=== PATIENT | female | born 2000 | race Caucasian/White ===

== ENCOUNTER 2020-02-25 13:59 | Emergency (ER) | payer OTHER, SELFPAY ==
[2020-02-25 15:18] VITALS: BP 121/76; PULSE 80; RESP 18; TEMP 37.3; O2SAT 99; BMI 14.6
--- NOTE | 2020-02-25 16:39 | ED.ABDPAIN ---
HPI - Abdominal Pain General Chief Complaint: Abdominal Pain Stated Complaint: ABD PAIN Time Seen by Provider: 02/25/20 16:29 History of Present Illness HPI narrative: patient is a 19-year-old female presents today with having abdominal pain diffuse over the entire abdomen for the last 2 weeks. Patient complaining of generalized malaise weakness. No chest pain or shortness of breath no diaphoresis. Patient claims she is passing gas. She is not actively vomiting. Patient denies anorexia. Claims that she does have a bowel movement but is very minimal. No coughing or congestion or upper respiratory symptoms. No pain on urination. No frequency. Patient has a implant does not think she is . Related Data Patient : No Home Medications Medication Instructions Recorded Confirmed No Known Home Meds 02/25/20 02/25/20 Allergies Allergy/AdvReac Type Severity Reaction Status Date / Time No Known Allergies Allergy Verified 02/25/20 15:17 Review of Systems Review of Systems Constitutional: No Weight loss, No Fever, No Chills, No Night Sweats, No Fatigue, No Malaise ENT/Mouth: No Hearing loss, No Ear Pain, No Nasal Congestion, No Sinus Pain, No Hoarseness, No sore throat, No Rhinorrhea, No Swallowing Difficulty Eyes: No Eye Pain, No Swelling, No Redness, No Foreign Body, No Discharge, No Vision Changes Cardiovascular: No Chest Pain, No SOB, No Dyspnea on Exertion, No Orthopnea, No Edema, No Palpitations Respiratory: No Cough, No Sputum, No Wheezing, No Smoke Exposure, No Dyspnea Gastrointestinal: No Nausea, No Vomiting, No Diarrhea, No Constipation, No abdominal Pain, No Hematochezia, No Melena Genitourinary: no irregular bleeding, No Dysuria, No Urinary Frequency, No Hematuria, No Urinary Incontinence, No Urgency, No Flank Pain, No Urinary Flow Changes, No Hesitancy Musculoskeletal: No joint pain, No Myalgias, No Joint Swelling Skin: No Skin Lesions, No rash Neuro: No Weakness, No Numbness, No Paresthesias, No Loss of Consciousness, No Dizziness, No Headache Psych: No Anxiety/Panic, No Depression, No SI/HI/AH/VH, No Social Issues, Heme/Lymph: No Bruising, No Bleeding,No Lymphadenopathy Endocrine: No Polyuria, No Polydipsia, No Temperature Intolerance Physical Exam Vital Signs: Vital Signs: Vital Signs Temp Pulse Resp BP Pulse Ox 02/25/20 20:00 98.0 F 81 18 100/62 99 02/25/20 19:09 65 14 107/65 98 02/25/20 16:59 77 18 108/69 100 02/25/20 15:18 99.1 F 80 18 121/76 99 Body Mass Index 14.6 Appearance: Alert. Oriented X3. No acute distress. Eyes: Pupils equal, round and reactive to light. ENT: Pharynx normal. Neck: Normal inspection. Neck supple. No lymph nodes noted. No crepitus CVS: Normal heart rate and rhythm. Pulses normal. Normal S1 and S2 Respiratory: No respiratory distress. Breath sounds normal. No Wheezing. No rales Abdomen: Soft and nontender. No rigidity. No distention. good BS x4 Skin: Skin warm and dry. Normal skin color. Normal skin turgor. Extremities: No lower extremity edema. Neurovascular intact to all extremities. No Lacerations. No Rash Neuro: Oriented X 3. No motor deficit. No sensory deficit. Moving all extermities. No slurred speech MDM - Abdominal Pain MDM Narrative Medical decision making narrative: Patient's CT scan of the abdomen did not show any acute evidence of obstruction, abscess, perforation. Patient well-appearing abdominal exam is soft nontender. Will discharge patient home. test was negative. Currently in stable condition. Urine showed no evidence of infection. Differential Diagnosis Differential diagnosis: Likely abdominal pain, calculus of kidney, constipation, gastroenteritis, gastritis, ovarian cyst, pancreatitis and peptic ulcer disease Lab Data Attestation: I reviewed the patient's lab results. Result diagrams: 02/25/20 17:10 02/25/20 17:10 Labs: Lab Results 02/25/20 02/25/20 02/25/20 Range/Units 17:10 17:10 18:49 WBC 6.5 (4.8-10.8) X10*3/uL RBC 4.49 (4.20-5.50) X10*6/uL Hgb 13.3 (12.0-16.0) g/dl Hct 38.8 (37-47) % MCV 86.4 (80-98) fL MCH 29.6 (27.0-33.0) pg MCHC 34.3 (31.0-35.0) g/dl RDW 12.7 (11.0-16.0) % Plt Count 307 (160-400) X10*3/uL MPV 9.4 (9.4-12.3) fL Immature Gran % (Auto) 0.3 (0.0-0.4) % Neut % (Auto) 61.0 (45-73) % Lymph % (Auto) 29.4 (20-40) % [place] % (Auto) 7.7 (2-11) % Eos % (Auto) 0.8 (0-4) % Baso % (Auto) 0.8 (0-2) % Lymph # (Auto) 1.9 (1.2-4.9) X10*3/uL [place] # (Auto) 0.5 (0.1-1.2) X10*3/uL Eos # (Auto) 0.1 (0.0-0.4) X10*3/uL Baso # (Auto) 0.1 (0.0-0.2) X10*3/uL Abs Immat Gran (auto) 0.02 (0.00-0.03) X10*3/uL Absolute Neuts (auto) 4.0 (2.0-8.3) X10*3/uL Absolute Nucleated RBC 0.000 (0.0-0.012) X10*3/uL Nucleated RBC % (auto) 0.0 (0.0-0.2) /100WBC Sodium 139 (135-145) mmol/L Potassium 3.6 (3.3-5.1) mmol/l Chloride 105 (96-108) mmol/L Carbon Dioxide 19 L (22-29) mmol/L Anion Gap 19 (12-20) BUN 8 L (9-16) mg/dL Creatinine 0.80 (0.5-1.4) mg/dL Estim Creat Clear Calc 68.3 Estimated GFR > 60 Random Glucose 78 (60-115) mg/dL Calcium 9.8 (8.4-10.2) mg/dL Total Bilirubin 1.5 H (0.0-1.0) mg/dL Direct Bilirubin 0.6 H (0.0-0.5) mg/dL AST 15 (5-31) U/L ALT 6 (0-31) U/L Alkaline Phosphatase 73 (39-117) U/L Total Protein 7.7 (6.5-8.0) g/dL Albumin 5.0 (3.5-5.0) g/dL Lipase 13 (8-78) U/L Urine Color YELLOW Urine Appearance CLEAR Urine pH 6.0 (5.0-8.0) Ur Specific [place] 1.020 (1.005-1.025) Urine Protein NEG (NEG-TRACE) MG/DL Urine Glucose (UA) NEG (NEG) MG/DL Urine Ketones 40 (NEG) MG/DL Urine Blood NEG (NEG) Urine Nitrite NEG (NEG) Ur Leukocyte Esterase NEG (NEG) Urine Test NEGATIVE (NEGATIVE) Discharge Plan Discharge Clinical Impression: Abdominal pain Patient Disposition: Home, Self-Care Instructions: Abdominal Pain (ED) Prescriptions: No Action No Known Home Meds RF: 0 Referrals: Physician,None [Physician] - 2 days [facility] Past Medical History Medical History (Updated 02/25/20 @ 20:51 by Sabi Calderon MD) Scoliosis Surgical History (Updated 02/25/20 @ 16:42 by Sabi Calderon MD) No pertinent past surgical history Social History Social History Smoking Status: Never smoker Use of substances other than those prescribed or required for medical reasons: Yes Substance Use Type: Marijuana Substance Use Frequency: Daily Advance Directives: No Advance Directives Information Provided: No
[2020-02-25 16:59] VITALS: BP 108/69; PULSE 77; RESP 18; O2SAT 100
[2020-02-25] MEDS: 0.9 % Sodium Chloride 1,000 ML 999 ML IVCONT (17:00)
[2020-02-25 17:15] LABS: MANUAL DIFF FLAG NO
[2020-02-25 17:17] LABS: Basophils Absolute Auto 0.1 X10*3/uL (0.0-0.2); Basophils Percent Auto 0.8 % (0-2); Eosinophils Absolute Auto 0.1 X10*3/uL (0.0-0.4); Eosinophils Percent Auto 0.8 % (0-4); Hematocrit 38.8 % (37-47); Hemoglobin 13.3 g/dl (12.0-16.0); Imm Gran Abs Auto 0.02 X10*3/uL (0.00-0.03); Imm Gran Pct Auto 0.3 % (0.0-0.4); Lymphocytes Absolute Auto 1.9 X10*3/uL (1.2-4.9); Lymphocytes Percent Auto 29.4 % (20-40); Mean Corpuscular HGB Conc 34.3 g/dl (31.0-35.0); Mean Corpuscular Hemoglobin 29.6 pg (27.0-33.0); Mean Corpuscular Volume 86.4 fL (80-98); Mean Platelet Volume 9.4 fL (9.4-12.3); Monocytes Absolute Auto 0.5 X10*3/uL (0.1-1.2); Monocytes Percent Auto 7.7 % (2-11); Platelet Count 307 X10*3/uL (160-400); Red Blood Count 4.49 X10*6/uL (4.20-5.50); Red Cell Distribution Width 12.7 % (11.0-16.0); White Blood Count 6.5 X10*3/uL (4.8-10.8)
[2020-02-25] MEDS: ondansetron HCL 4 MG/2 ML VIAL IVPUSH (17:17)
--- NOTE | 2020-02-25 17:19 | PC.NURSE ---
pt resting in the stretcher, respiration even and unlabored, pt reports mid abd pain x2 weeks and constipation, some nausea as well. pt does reports that she usually has a normal bowel movement every day but not the last two weeks, when she does go just a very small pebble-hard. abd soft and non-tender, hyper active bowel sounds on the left side
[2020-02-25 17:37] LABS: Alanine Aminotransferase 6 U/L (0-31); Alkaline Phosphatase 73 U/L (39-117); Anion Gap 19 (12-20); Aspartate Amino Transferase 15 U/L (5-31); Bilirubin Direct 0.6 mg/dL (0.0-0.5); Bilirubin Total 1.5 mg/dL (0.0-1.0); Blood Urea Nitrogen 8 mg/dL (9-16); Calcium 9.8 mg/dL (8.4-10.2); Carbon Dioxide 19 mmol/L (22-29); Chloride 105 mmol/L (96-108); Creatinine Clr Calc Pharmacy 68.3; Estimated Glomerular Filt Rate > 60; Glucose Random 78 mg/dL (60-115); Lipase 13 U/L (8-78); Potassium 3.6 mmol/l (3.3-5.1); Sodium 139 mmol/L (135-145); Total Protein 7.7 g/dL (6.5-8.0)
--- NOTE | 2020-02-25 18:03 | PC.NURSE ---
PT RESTING, REPORTS THAT NAUSEA HAS IMPROVED BUT STILL HAVING THE ABD PAIN
--- NOTE | 2020-02-25 18:12 | CT_ITS ---
EXAMINATION: CT ABDOMEN AND PELVIS WITH CONTRAST CLINICAL INFORMATION: 19-year-old female patient with abdominal pain. COMPARISON: None TECHNIQUE: Multidetector volumetric images were obtained from the superior aspect of the liver through the pubic symphysis following administration 85 mL of Omnipaque 350 intravenous contrast. Sagittal and coronal reformatted images were obtained on the technologist's workstation. Oral contrast: No This CT examination was performed using dose optimization techniques as appropriate, variously including the following: *Automated exposure control *Adjustment of mA and/or kV according to patient size (this includes techniques or standardized protocols for targeted exams where dose is matched to indication/reason for exam; i.e. extremities or head) *Use of iterative reconstruction technique DLP: 227 mGy-cm FINDINGS: WHEEL ROLLER: No obstruction. There is thoracolumbar scoliosis. LUNG BASES: The visualized lung bases are unremarkable. LIVER, GALLBLADDER, AND BILIARY TREE: The liver is normal in size, shape, and attenuation. No focal hepatic lesion or biliary ductal dilatation is present. The gallbladder is unremarkable with no evidence of radiopaque gallstones, gallbladder wall thickening, or obvious pericholecystic inflammatory changes. PANCREAS: Unremarkable. SPLEEN: Unremarkable. ADRENAL GLANDS: Unremarkable. KIDNEYS AND URETERS: The kidneys are normal in size, shape, and attenuation. No hydronephrosis, hydroureter, or calculi seen. No perinephric stranding. BLADDER: Nearly empty. GASTROINTESTINAL TRACT: The small and large bowel are unremarkable. The appendix is unremarkable. ABDOMINAL WALL: No significant hernia is appreciated. LYMPH NODES: Normal. VASCULAR: Unremarkable. PELVIC VISCERA: The anteverted uterus is normal in shape. A small 0.6 cm enhancing nodule is located in the endometrial canal. Series 6, image 61. This could represent a small submucosal fibroid or endometrial polyp. The adnexa are unremarkable. There is no free fluid. OSSEOUS STRUCTURES: Unremarkable. IMPRESSION: 1. Thoracolumbar scoliosis. 2. Small endometrial polyp or submucosal fibroid.
[2020-02-25 19:00] LABS: Glucose Urine UA NEG (NEG); Leukocyte Esterase Urine NEG (NEG); Nitrite Urine NEG (NEG); Urine Blood NEG (NEG); Urine Ketones 40 MG/DL (NEG); Urine Protein NEG (NEG-TRACE)
[2020-02-25 19:01] LABS: Appearance Urine CLEAR; Color Urine YELLOW
[2020-02-25 19:02] LABS: UPreg QC Valid YES; Urine Pregnancy NEGATIVE (NEGATIVE)
[2020-02-25 19:09] VITALS: BP 107/65; PULSE 65; RESP 14; O2SAT 98
[2020-02-25] MEDS: iohexoL 350 MG/ML 100 ML INFUS..BTL IV (19:24)
[2020-02-25 20:00] VITALS: BP 100/62; PULSE 81; RESP 18; TEMP 36.7; O2SAT 99
[2020-02-25 21:05] VITALS: BP 107/62; PULSE 89; RESP 14; TEMP 36.5; O2SAT 100
== END 2020-02-25 21:14 | disposition home or self-care (01) ==
PROVIDERS: Emergency Provider Emergency Medicine Emergency Medical Services
DX: R10.9 Unspecified abdominal pain (principal); R53.81 Other malaise; F12.90 Cannabis use, unspecified, uncomplicated
CPT/HCPCS: 36415; 74177; 80048; 80076; 81003; 81025; 83690; 85025; 96361; 96374; 99284; J2405

== ENCOUNTER 2020-03-26 16:41 | Emergency (ER) | payer OTHER, SELFPAY ==
--- NOTE | 2020-03-26 | ECG_ITS ---
Test Reason : CHEST PRESSURE Blood Pressure : / mmHG Vent. Rate : 068 BPM Atrial Rate : 068 BPM P-R Int : 104 ms QRS Dur : 084 ms QT Int : 404 ms P-R-T Axes : 060 102 -24 degrees QTc Int : 429 ms Sinus rhythm with short [place] Rightward axis ST depression in Inferior leads RSR' or QR pattern in V1 suggests right ventricular conduction delay T-wave inversion in Anterior leads Abnormal ECG No previous ECGs available Referred By: Generic ED Physician Electronically Signed By:MALU MCLAIN MD
[2020-03-26 17:07] VITALS: BP 110/80; PULSE 74; TEMP 37.5; BMI 14.9
--- NOTE | 2020-03-26 18:57 | ED_ITS ---
HPI - Chest Pain General Chief Complaint: Chest Pain Stated Complaint: burning sensation in chest Time Seen by Provider: 03/26/20 18:44 Source: patient Mode of arrival: ambulatory Limitations: no limitations History of Present Illness HPI narrative: 19-year-old female with no significant past medical history presents with 1 day of chest tightness and burning. She does not describe any palpitations, shortness breath, edema, fevers, chills, abdominal pain, abdominal distention, dysuria, hematuria, or any other concerning symptoms. She did start Prozac 6 days ago. MD complaint: chest pain Onset (ago): day(s) (1) Timing of current episode: constant Prior episodes: No Onset: during rest Pain location: substernal Pain radiation: none Severity: moderate Pain scale (0-10): 6 Quality: tightness and burning Relieving factors: nothing Risk Factors Coronary artery disease risk factors: none Thoracic aortic dissection risk factors: none Related Data On Oral Contraceptives: No Previous Rx's Medication Instructions Recorded omeprazole 20 mg PO DAILY #14 cap 03/26/20 Allergies Allergy/AdvReac Type Severity Reaction Status Date / Time No Known Allergies Allergy Verified 03/26/20 18:44 Review of Systems Review of Systems: Constitutional: No Weight loss, No Fever, No Chills, No Night Sweats, No Fatigue, No Malaise ENT/Mouth: No Hearing loss, No Ear Pain, No Nasal Congestion, No Sinus Pain, No Hoarseness, No sore throat, No Rhinorrhea, No Swallowing Difficulty Eyes: No Eye Pain, No Swelling, No Redness, No Foreign Body, No Discharge, No Vision Changes Cardiovascular: pos Chest Pain and burning, no SOB, no Dyspnea on Exertion, No Orthopnea, No Edema, No Palpitations Respiratory: No Cough, No Sputum, No Wheezing, No Smoke Exposure, No Dyspnea Gastrointestinal: no Nausea, No Vomiting, No Diarrhea, No abdominal Pain, No Hematochezia, No Melena Genitourinary: No irregular bleeding, No Dysuria, No Urinary Frequency, No Hematuria, No Urinary Incontinence, No Urgency, No Flank Pain, No Urinary Flow Changes, No Hesitancy Musculoskeletal: No joint pain, No Myalgias, No Joint Swelling Skin: No Skin Lesions, No rash Neuro: No Weakness, No Numbness, No Paresthesias, No Loss of Consciousness, No Dizziness, No Headache Psych: No Anxiety/Panic, No Depression, No SI/HI/AH/VH Heme/Lymph: No Bruising, No Bleeding,No Lymphadenopathy Endocrine: No Polyuria, No Polydipsia, No Temperature Intolerance Yes all other systems are reviewed and are negative [facility] Past Medical History Attestation statement: The following information was validated with the patient. Medical History Anxiety Social History Social History Alcohol intake: never Smoking Status: Never smoker Use of substances other than those prescribed or required for medical reasons: No Advance Directives: No Advance Directives Information Provided: Yes Physical Exam Vital Signs: Vital Signs: Last Vital Signs Temp 98.5 F 03/26/20 19:20 Pulse 65 03/26/20 19:20 Resp 16 03/26/20 19:20 BP 107/71 03/26/20 19:20 Pulse Ox 99 03/26/20 19:20 Body Mass Index 14.9 Appearance: Alert. Oriented X3. No acute distress. Head: Normal external exam. Normocephalic. Atraumatic. No Koo signs noted. No raccoon eyes noted Eyes: PERRLA. EOMI. Conjunctiva and sclera normal. Eyelids normal. ENT: TM's Normal. Pharynx normal. Uvula midline. Moist mucous membranes. No trismus noted. No drooling noted. No muffled voice noted. Neck: Normal inspection. Neck supple. No adenopathy. Thyroid Normal. No meningeal signs. No neck mass noted. CVS: Normal heart rate and rhythm. Heart sound normal. No murmurs noted. Pulses equal to all extremities. Respiratory: No respiratory distress. Painless inspiration. Breath sounds norm al. No wheezes/rales/rhonchi noted. Chest nontender. No accessory muscle usage noted or decreased air movement noted. Abdomen: Soft and nontender. Bowel sounds normal in all 4 quadrants. No distenti on noted. No organomegaly noted. No visible injury noted. Back: No CVA tenderness. Full range of motion noted. Skin: Skin warm and dry. Normal skin color. Normal skin turgor. No rashes/lesions/lacerations noted. Extremities: No lower extremity edema. Extremities exhibit normal range of motion. Extremities nontender. Neuro: cranial nerves 2-12 intact, no focal neural deficits, strength 5/5 to all extremities, No motor deficit. No sensory deficit. Reflexes normal. Course Course Course Narrative: 19-year-old female with no significant past medical history presents with 1 day of chest tightness and burning. She does not describe any palpitations, shortness breath, edema, fevers, chills, abdominal pain, abdominal distention, dysuria, hematuria, or any other concerning symptoms. She did start Prozac 6 days ago. she recently started Prozac, we will rule out QT prolongation with EKG, rule out ACS with troponin, CBC Chem 7. All lab values are within normal limits. Plan of care is to discharge home and have patient continue to follow-up with gastroenterology as scheduled on April 06 and for primary care evaluation within this week. Patient verbalized understanding of and agrees to plan of care to discharge home. MDM - Chest Pain MDM Narrative Medical decision making narrative: 19-year-old female started Prozac 6 days ago, presents with chest pain and burning. We will rule out ACS, order CBC and Chem 7. we will give Maalox for heartburn. Differential Diagnosis Differential diagnosis: Likely atypical chest pain, st elevation myocardial infarction and chest pain Differential diagnosis: GERD, medication reaction Medical Records Data Attestation: I reviewed the patient's medical records. Lab Data Attestation: I reviewed the patient's lab results. Result diagrams: 03/26/20 19:18 03/26/20 19:18 Labs: Lab Results 03/26/20 03/26/20 03/26/20 Range/Units 19:18 19:18 19:18 WBC 8.6 (4.8-10.8) X10*3/uL RBC 4.41 (4.20-5.50) X10*6/uL Hgb 13.5 (12.0-16.0) g/dl Hct 38.7 (37-47) % MCV 87.8 (80-98) fL MCH 30.6 (27.0-33.0) pg MCHC 34.9 (31.0-35.0) g/dl RDW 13.0 (11.0-16.0) % Plt Count 348 (160-400) X10*3/uL MPV 9.3 L (9.4-12.3) fL Immature Gran % (Auto) 0.4 (0.0-0.4) % Neut % (Auto) 57.1 (45-73) % Lymph % (Auto) 31.7 (20-40) % [place] % (Auto) 9.0 (2-11) % Eos % (Auto) 1.1 (0-4) % Baso % (Auto) 0.7 (0-2) % Lymph # (Auto) 2.7 (1.2-4.9) X10*3/uL [place] # (Auto) 0.8 (0.1-1.2) X10*3/uL Eos # (Auto) 0.1 (0.0-0.4) X10*3/uL Baso # (Auto) 0.1 (0.0-0.2) X10*3/uL Abs Immat Gran (auto) 0.03 (0.00-0.03) X10*3/uL Absolute Neuts (auto) 4.9 (2.0-8.3) X10*3/uL Absolute Nucleated RBC 0.000 (0.0-0.012) X10*3/uL Nucleated RBC % (auto) 0.0 (0.0-0.2) /100WBC Sodium 140 (135-145) mmol/L Potassium 3.8 (3.3-5.1) mmol/l Chloride 105 (96-108) mmol/L Carbon Dioxide 23 (22-29) mmol/L Anion Gap 16 (12-20) BUN 9 (9-16) mg/dL Creatinine 0.71 (0.5-1.4) mg/dL Estim Creat Clear Calc 78.7 Estimated GFR > 60 Random Glucose 85 (60-115) mg/dL Calcium 9.4 (8.4-10.2) mg/dL Magnesium 2.3 (1.6-2.6) mg/dL Troponin I High Sens < 3.5 (<3.5-17.0) ng/L Imaging Data Chest x-ray: Attestation: I personally reviewed and interpreted this imaging study as follows: Radiologist's impression: EXAMINATION: XR CHEST CLINICAL INFORMATION: Chest burning COMPARISON: Scoliosis examination from 07/16/2012 TECHNIQUE: 2 views of the chest were obtained. FINDINGS: Lungs are well-inflated and clear. Trachea is midline in position. No interstitial disease, consolidation or mass. No pleural effusion or pneumothorax. Cardiac silhouette and pulmonary vessels are normal in size. The mediastinum and marlys have normal contour. The visualized upper abdomen is unremarkable. No pneumoperitoneum. There is chronic rotatory dextroscoliosis of the lower thoracic and lumbar spine. XR/XR chest 2V IMPRESSION: No acute cardiopulmonary abnormality. ECG Data ECG #1: Attestation: I personally reviewed and interpreted this ECG as follows: ECG interpretation date: 03/26/20 ECG interpretation time: 17:39 Interpretation: Vent. Rate : 068 BPM Atrial Rate : 068 BPM P-R Int : 104 ms QRS Dur : 084 ms QT Int : 404 ms P-R-T Axes : 060 102 -24 degrees QTc Int : 429 ms Sinus rhythm with short [place] Rightward axis Nonspecific ST and T wave abnormality Abnormal ECG No previous ECGs available Scores Heart Score History: -0- slightly suspicious ECG: -0- normal Age: -0- < or = 45 Risk factory: -0- no risk factors known Troponin: -0- < or = normal limit Score: 0 Risk: 1.7% Discharge Plan Discharge Clinical Impression: Atypical chest pain Patient Disposition: Home, Self-Care Instructions: Chest Pain (ED), Gastroesophageal Reflux Disease (ED) Additional Instructions: you were evaluated for chest pain and burning. Your EKG is normal sinus rhythm, your troponins, which are cardiac enzymes, are negative. Your CBC and chemistry lab values are normal. Urine is negative for UTI and negative for . Please continue to take Prozac as scheduled. You must follow up with the person that prescribed this medication to you in the next week or 2. please follow-up with gastroenterology as scheduled. We have provided you a prescription for omeprazole To manage reflux symptoms. Thank you for choosing this emergency department for evaluation. Please follow-up with primary care physician as needed. Return to the emergency department for any new, concerning, or worsening symptoms. Prescriptions: New omeprazole 20 mg capsule,delayed release(DR/EC) 20 mg PO DAILY Qty: 14 RF: 0
[2020-03-26] MEDS: Magnesium Hydrox/Alum Hydrox 30 ML ORAL.SUSP PO (19:13)
[2020-03-26 19:20] VITALS: BP 107/71; PULSE 65; RESP 16; TEMP 36.9; O2SAT 99
[2020-03-26 19:28] LABS: MANUAL DIFF FLAG NO
[2020-03-26 19:30] LABS: Basophils Absolute Auto 0.1 X10*3/uL (0.0-0.2); Basophils Percent Auto 0.7 % (0-2); Eosinophils Absolute Auto 0.1 X10*3/uL (0.0-0.4); Eosinophils Percent Auto 1.1 % (0-4); Hematocrit 38.7 % (37-47); Hemoglobin 13.5 g/dl (12.0-16.0); Imm Gran Abs Auto 0.03 X10*3/uL (0.00-0.03); Imm Gran Pct Auto 0.4 % (0.0-0.4); Lymphocytes Absolute Auto 2.7 X10*3/uL (1.2-4.9); Lymphocytes Percent Auto 31.7 % (20-40); Mean Corpuscular HGB Conc 34.9 g/dl (31.0-35.0); Mean Corpuscular Hemoglobin 30.6 pg (27.0-33.0); Mean Corpuscular Volume 87.8 fL (80-98); Mean Platelet Volume 9.3 fL (9.4-12.3); Monocytes Absolute Auto 0.8 X10*3/uL (0.1-1.2); Neutrophils Absolute Auto 4.9 X10*3/uL (2.0-8.3); Neutrophils Percent Auto 57.1 % (45-73); Platelet Count 348 X10*3/uL (160-400); Red Blood Count 4.41 X10*6/uL (4.20-5.50); White Blood Count 8.6 X10*3/uL (4.8-10.8)
[2020-03-26 19:57] LABS: Anion Gap 16 (12-20); Blood Urea Nitrogen 9 mg/dL (9-16); Calcium 9.4 mg/dL (8.4-10.2); Carbon Dioxide 23 mmol/L (22-29); Chloride 105 mmol/L (96-108); Creatinine Clr Calc Pharmacy 78.7; Estimated Glomerular Filt Rate > 60; Glucose Random 85 mg/dL (60-115); Magnesium 2.3 mg/dL (1.6-2.6); Potassium 3.8 mmol/l (3.3-5.1); Sodium 140 mmol/L (135-145)
[2020-03-26 20:00] VITALS: BP 108/70; PULSE 61; RESP 16; TEMP 36.9; O2SAT 99
[2020-03-26 20:02] LABS: Troponin-I High Sensitivity < 3.5 ng/L (<3.5-17.0)
== END 2020-03-26 20:29 | disposition home or self-care (01) ==
PROVIDERS: Nurse Practitioner Family; Emergency Provider Emergency Medicine
DX: R07.89 Other chest pain (principal); Z79.899 Other long term (current) drug therapy
CPT/HCPCS: 36415; 71046; 80048; 83735; 84484; 85025; 93005; 99283; 99284

== ENCOUNTER 2020-11-10 10:35 | Outpatient (REF) | payer OTHER, SELFPAY | END 2020-11-10 10:36 | disposition home or self-care (01) | LOC: HO.LAB 10:35 | PROVIDERS: Visit Provider Nurse Practitioner Family | DX: Z20.822 Contact with and (suspected) exposure to COVID-19 (principal) | CPT/HCPCS: U0003; U0005 ==

== ENCOUNTER 2020-12-26 08:40 | Emergency (ER) | payer OTHER, SELFPAY ==
[2020-12-26 08:58] VITALS: BP 115/80; PULSE 95; RESP 18; TEMP 37.1; O2SAT 98; BMI 19.9
[2020-12-26 09:49] LABS: COVID-19 Test Positive (Negative)
[2020-12-26 09:51] LABS: IDNOW Serial# 9DD0AD1C; Strep A Nucleic Acid Negative (Negative)
--- NOTE | 2020-12-26 09:55 | ED_ITS ---
HPI - General Adult General Chief complaint: General Medical Stated complaint: sore throat Time Seen by Provider: 12/26/20 09:28 History of Present Illness HPI narrative: Patient complains of sore throat, went to urgent care 2 days ago and was started on Zithromax and throat still hurts when she swallows, there is no fever no chills no dizziness no cough no shortness of breath no nausea or vomiting, patient can swallow easily but it hurts Related Data Home Medications Medication Instructions Recorded Confirmed famotidine 20 mg tablet 20 mg PO BID PRN 11/10/20 fluoxetine 20 mg capsule 20 mg PO DAILY 11/10/20 simethicone 80 mg chewable tablet 80 mg PO Q6H PRN 11/10/20 Previous Rx's Medication Instructions Recorded omeprazole 20 mg capsule,delayed 20 mg PO DAILY #14 cap 03/26/20 release dexamethasone 6 mg tablet 6 mg PO DAILY 3 Days #3 tab 11/10/20 (Decadron) penicillin V potassium 500 mg 500 mg PO BID 10 Days #20 tab 11/10/20 tablet azithromycin 500 mg tablet 500 mg PO DAILY 5 Days #5 tab 12/24/20 prednisone 20 mg tablet 40 mg PO DAILY 2 Days #4 tab 12/26/20 Allergies Allergy/AdvReac Type Severity Reaction Status Date / Time No Known Allergies Allergy Verified 11/10/20 10:16 Review of Systems Review of Systems: Positive for sore throat Negatives are no fever no chills no dizziness no weakness no fainting or feeling faint no headache no neck pain no stiff neck no cough no sputum no difficulty breathing no chest pain no abdominal pain no nausea vomiting or diarrhea no skin rash Yes all other systems are reviewed and are negative [facility] Past Medical History Source: nursing notes reviewed Medical History Anxiety Scoliosis Surgical History No pertinent past surgical history Social History Social History Alcohol intake: never Substance Use Type: Marijuana Advance Directives: No Advance Directives Information Provided: No Patient : No Physical Exam Vital Signs: Vital Signs: Last Vital Signs Temp 98.7 F 12/26/20 08:58 Pulse 95 12/26/20 08:58 Resp 18 12/26/20 08:58 BP 115/80 12/26/20 08:58 Pulse Ox 98 12/26/20 08:58 Body Mass Index 19.9 General appearance no acute distress Head is normocephalic atraumatic Pupils equal round reactive to light The nose is not congested and no sinus tenderness The pharynx has no redness swelling or exudate, no drooling, voice is normal Neck is supple without lymphadenopathy Chest is clear to auscultation bilateral Heart no murmur Abdomen soft nontender Extremities full range of motion x4 Skin no rashes Neuro no focal deficit Course Course Course Narrative: COVID testing was positive The patient is well-appearing breathing easily swallows easily and is discharged with the advice to wear mask keep a distance and return any time if worse Medical Decision Making Lab Data Labs: Lab Results 12/26/20 12/26/20 Range/Units 09:36 09:36 COVID-19 ([facility]ITA) Positive A (Negative) COVID-19 Clin Com See Note S. pyogenes GrpA MICHOACANO Negative (Negative) Discharge Plan Discharge Clinical Impression: COVID-19, Pharyngitis Patient Disposition: Home, Self-Care Additional Instructions: Your COVID test was positive Her strep test was negative The throat had mild redness but otherwise looked normal, no sign of any dangerous condition now COVID is very contagious so wear a mask when her around people try to keep a distance from people and you should be off work for at least 5 days after all symptoms are gone as well as getting a repeat COVID test that is negative Some facilities that work with the elderly may have a different protocol so make sure your employer knows you have COVID Return any time any worse condition or any concerns You can use Motrin or Tylenol for aches and pains, I wrote for 2 days of prednisone steroid to reduce inflammation in the throat Prescriptions: New prednisone 20 mg tablet 40 mg PO DAILY 2 Days Qty: 4 RF: 0 No Action omeprazole 20 mg capsule,delayed release(DR/EC) 20 mg PO DAILY Qty: 14 RF: 0 azithromycin 500 mg tablet 500 mg PO DAILY 5 Days Qty: 5 RF: 0 simethicone 80 mg tablet,chewable 80 mg PO Q6H PRNRF: 0 famotidine 20 mg tablet 20 mg PO BID PRN (Reason: heartburn) RF: 0 fluoxetine 20 mg capsule 20 mg PO DAILY RF: 0 dexamethasone [Decadron] 6 mg tablet 6 mg PO DAILY 3 Days Qty: 3 RF: 0 penicillin V potassium 500 mg tablet 500 mg PO BID 10 Days Qty: 20 RF: 0 Stand Alone Forms: Work/School Release Interventions: ED Discharge Assessment Last Done: 12/26/20 10:16 Discharge Date/Time: 12/26/20 10:17
== END 2020-12-26 10:17 | disposition home or self-care (01) ==
PROVIDERS: Physician Assistant Medical; Emergency Provider Internal Medicine
DX: U07.1 COVID-19 (principal); J02.9 Acute pharyngitis, unspecified
CPT/HCPCS: 36415; 87635; 87651; 99283